=== PATIENT | female | born 1990 | race Caucasian/White ===

== ENCOUNTER 2023-06-13 16:16 | Emergency (ER) | payer MEDICARE ==
[2023-06-13 16:33] VITALS: TEMP 98.4
[2023-06-13] MEDS: SODIUM CHLORIDE 0.9% 1,000 ML IV STA (16:53)
[2023-06-13] MEDS: KETOROLAC 15 MG/ML 1 ML VIAL IVP STA (16:53)
[2023-06-13] MEDS: PANTOPRAZOLE 40 MG/10 ML VIAL IVP STA (16:54)
[2023-06-13] MEDS: ONDANSETRON 4 MG/2 ML VIAL IVP STA (16:58)
[2023-06-13] MEDS: MAG HYDROX/AL HYDROX/SIMETH 30 ML, HYOSCYAMINE ELIXIR 10 ML, LIDOCAINE VISCOUS 2% 10 ML PO STA (17:12)
[2023-06-13 17:15] LABS: Basophils # (A) 0.1 k/uL (0-0.2); Basophils % (A) 1 %; Eosinophils # (A) 0.1 k/uL (0-0.7); Eosinophils % (A) 1 %; HCT 41.3 % (34.0-46.0); HGB 13.6 gm/dL (11.4-16.0); Lymphocytes # (A) 1.8 k/uL (1.0-4.8); Lymphocytes % (A) 17 %; MCV 81.8 fL (80.0-100.0); Monocytes # (A) 0.4 k/uL (0-1.0); Monocytes % (A) 4 %; Neutrophils # (A) 8.2 k/uL (1.3-7.7); Neutrophils % (A) 77 %; Platelet Count 295 k/uL (150-450); RBC 5.05 m/uL (3.80-5.40); RDW 13.7 % (11.5-15.5); WBC 10.7 k/uL (3.8-10.6)
[2023-06-13 17:21] LABS: ALT 11 U/L (4-34); AST 19 U/L (14-36); African American GFR (CKD) >90 (>60 ml/min/1.73 sqM); Albumin 4.8 g/dL (3.5-5.0); Alkaline Phosphatase 79 U/L (38-126); Amylase 62 U/L (30-110); Anion Gap 7 mmol/L; Blood Urea Nitrogen 7 mg/dL (7-17); Calcium 10.2 mg/dL (8.4-10.2); Carbon Dioxide 25 mmol/L (22-30); Chloride 107 mmol/L (98-107); Glucose 101 mg/dL (74-99); Lipase 82 U/L (23-300); Non-African American GFR(CKD) >90 (>60 ml/min/1.73 sqM); Potassium 4.4 mmol/L (3.5-5.1); Sodium 139 mmol/L (137-145); Total Bilirubin 1.1 mg/dL (0.2-1.3); Total Protein 8.1 g/dL (6.3-8.2)
[2023-06-13 17:23] LABS: INR 0.9 (<1.2); Partial Thromboplastin Time 25.8 sec (22.0-30.0); Prothrombin Time 10.3 sec (10.0-12.5)
[2023-06-13 17:28] LABS: Appearance,Urine Cloudy (Clear); Bilirubin,Urine Negative (Negative); Blood,Urine Negative (Negative); Color,Urine Yellow; Glucose,Urine (UA) Negative (Negative); Ketones,Urine 1+ (Negative); Leukocyte Esterase,Urine Negative (Negative); Mucus,Urine Many /hpf; Nitrite,Urine Negative (Negative); Protein,Urine Trace (Negative); Specific Gravity,Urine 1.031 (1.001-1.035); Squamous Epithelial Cell,Urine 9 /hpf (0-4); Urobilinogen,Urine <2.0 mg/dL (<2.0); WBC,Urine 3 /hpf (0-5)
--- NOTE | 2023-06-13 17:53 | US ---
EXAMINATION TYPE: US gallbladder DATE OF EXAM: 06/13/2023 COMPARISON: NONE CLINICAL INDICATION: Female, 33 years old with history of abd pain, ruq; Generalized abdominal pain x 1 day. TECHNIQUE: Multiple sonographic images of the right upper quadrant are obtained. FINDINGS: EXAM MEASUREMENTS: Liver Length: 16.5 cm Gallbladder Wall: 0.13 cm CBD: 0.33 cm Right Kidney: 10.8 x 5.4 x 3.9 cm Pancreas: wnl Liver: wnl Gallbladder: wnl Evidence for sonographic Solomon's sign: No CBD: wnl Right Kidney: wnl IMPRESSION: 1. No significant abnormality seen. Sonographic Solomon sign is negative and there is no gallbladder o r biliary tree abnormality. 2. Normal liver, pancreas and right kidney. 3. No free fluid in the upper abdomen.
[2023-06-13] MEDS: ACETAMINOPHEN TAB 500 MG TAB PO STA (18:20)
--- NOTE | 2023-06-13 18:34 | CT ---
EXAMINATION TYPE: CT abdomen pelvis w con DATE OF EXAM: 06/13/2023 COMPARISON: None HISTORY: abdominal pain that radiates to the back with nausea CT DLP: 1411.2 mGycm Automated exposure control for dose reduction was used. TECHNIQUE: Helical acquisition of images was performed from the lung bases through the pelvis. CONTRAST: Performed without Oral Contrast and with IV Contrast, patient injected with 100ml mL of Isovue 300. FINDINGS: The lung bases are clear. The gallbladder is normal and there are no distention, gallstones, wall thickening or pericholecystic fluid. There is no biliary ductal dilatation. There is no focal mass or organomegaly involving the liver, pancreas, spleen and adrenal glands. There is no solid renal mass or hydronephrosis. The caliber of the abdominal aorta is normal and ther e is no retroperitoneal adenopathy. The bowel loops are normal in caliber and there is no dilatation or obstruction. No inflammatory rasmussen ges are identified in the bowel wall or mesentery and there is no free intraperitoneal air or fluid. There is a 7.2 cm cystic mass of the left adnexa. The osseous structures are intact. IMPRESSION: 7.2 cm cystic mass of left adnexa. Pelvic ultrasound would be useful for further characterization. No other significant amount is seen.
[2023-06-13 18:48] VITALS: RESP 18
--- NOTE | 2023-06-13 19:13 | US ---
EXAMINATION TYPE: US pelvic complete DATE OF EXAM: 06/13/2023 COMPARISON: CT: Today CLINICAL INDICATION: Female, 33 years old with history of eval for torsion/cyst of ovaries; pelvic pa in x 1 day. . Hx of ectopic in 2021. TECHNIQUE: Transabdominal sonographic images of the pelvis were acquired. Pt refused transvaginal exa m Date of LMP: 05/20/23 EXAM MEASUREMENTS: Uterus: 8.1 x 5.4 x 4.4 cm Endometrial Stripe: 0.7 cm Right Ovary: 4.1 x 2.7 x 2.7 cm Left Ovary: 6.2 x 3.7 x 4.2 cm 1. Uterus: Anteverted wnl 2. Endometrium: wnl 3. Right Ovary: cyst seen measuring 2.3 x 1.9 x 2.2cm 4. Left Ovary: cyst with septations seen measuring 5.2 x 4.2 x 3.8cm. Spectral, color and waveform doppler imaging shows good arterial and venous flow within the ovaries ; there is no evidence for ovarian torsion. 5. Bilateral Adnexa: wnl 6. Posterior cul-de-sac: wnl IMPRESSION: 1. 5.2 x 4.2 x 3.8 cm adnexal cystic mass which appears somewhat tubular. Findings raise the question of pyosalpinx and clinical correlation is recommended regarding the possibility of acute pelvic infl ammatory disease. 2. Normal uterus and endometrium. 3. Normal right ovary. 4. No free fluid in the cul-de-sac and limited transabdominal technique. Patient refused transvaginal ultrasound.
--- NOTE | 2023-06-13 20:05 | ED ---
General Adult HPI - General Chief complaint: Nausea/Vomiting/Diarrhea Stated complaint: abd pain,back pain Time Seen by Provider: 06/13/23 16:30 Source: patient, RN notes reviewed, old records reviewed Mode of arrival: ambulatory Limitations: no limitations - History of Present Illness Initial comments: Patient is a 33-year-old female presents emergency department complaining of generalized abdominal pain. States it is all over. Some nonspecific radiation. No urinary complaints. Denies any vaginal discharge, bleeding, concern for STDs. States she is not . Does have a history of prior ectopic . Denies any chest pain or shortness of breath. Denies obstipation. Endorses nausea and one episode of emesis. Home test negative. Presents for further evaluation at this time. - Related Data Previous Rx's Medication Instructions Recorded Doxycycline Hyclate 100 mg PO BID 7 Days #14 capsule 06/13/23 Allergies Allergy/AdvReac Type Severity Reaction Status Date / Time No Known Allergies Allergy Verified 06/13/23 16:28 Review of Systems ROS Statement: Those systems with pertinent positive or pertinent negative responses have been documented in the HPI. Review of Systems: CONST: Denies fever EYES: Denies blurry vision ENT: Denies nasal congestion C/V: Denies Chest pain RESP: Denies shortness of breath GI: Endorses abdominal pain : Denies dysuria SKIN: Denies rash. MSK: Denies joint pain. NEURO: Denies headache ROS Other: All systems not noted in ROS Statement are negative. Past Medical History Past Medical History: Asthma History of Any Multi-Drug Resistant Organisms: None Reported Additional Past Surgical History / Comment(s): D&C Past Psychological History: No Psychological Hx Reported Smoking Status: Never smoker Past Alcohol Use History: None Reported Past Drug Use History: None Reported General Exam - General Exam Comments Initial Comments: General: Appears anxious in mild distress secondary to abdominal pain. HEAD: Normal with no signs of head trauma. EYES: PERRLA, EOMI, conjunctiva normal, no discharge. ENT: Hearing grossly intact, normal oropharynx. RESPIRATORY: Clear breath sounds bilaterally. No wheezes, rales, or rhonchi. C/V: Regular rate and rhythm. S1 and S2 auscultated, no edema, peripheral pulses 2+ and intact throughout ABD: Abdomen is soft, nondistended. Mild tenderness to palpation primarily in the right upper quadrant and right mid quadrant. No guarding. No peritoneal signs. No rebound tenderness. EXT: Normal range of motion, no obvious deformity SKIN: No rashes or lesions observed on exposed skin. NEURO: Alert and oriented x 4. Limitations: no limitations Course Vital Signs 06/13/23 06/13/23 06/13/23 16:25 18:22 20:25 Temperature 98.4 F Pulse Rate 75 77 68 Respiratory 16 18 18 Rate Blood Pressure 115/78 117/74 114/73 O2 Sat by Pulse 100 98 97 Oximetry Medical Decision Making - Medical Decision Making Was pt. sent in by a medical professional or institution (, PA, PRECISION MECHANICAL INSTRUMENT MAKER, urgent care, hospital, or alf...) When possible be specific @ -No Did you speak to anyone other than the patient for history (EMS, parent, family, police, friend...)? What history was obtained from this source @ -No Did you review nursing and triage notes (agree or disagree)? Why? @ -I reviewed and agree with nursing and triage notes Were old charts reviewed (outside hosp., previous admission, EMS record, old EKG, old radiological studies, urgent care reports/EKG's, alf records)? Report findings @ -No old charts were reviewed Differential Diagnosis (chest pain, altered mental status, abdominal pain women, abdominal pain men, vaginal bleeding, weakness, fever, dyspnea, syncope, headach e, dizziness, GI bleed, back pain, seizure, CVA, palpatations, mental health, musculoskeletal)? @ -Differential Abdominal Pain Women: Appendicitis, Cholecystitis, diverticulosis, ischemic bowel, pancreatitis, hepatitis, UTI, gastroenteritis, AAA, incarcerated hernia, bowel obstruction, constipation, inflammatory bowel, hepatitis, peptic ulcer disease, splenic infarction, perforated viscus, vulvitis, ovarian torsion, PID, kidney stone, placenta abruption, this is not meant to be an all-inclusive list EKG interpreted by me (3pts min.). @ -As above X-rays interpreted by me (1pt min.). @ -None done CT interpreted by me (1pt min.). @ -CT abdomen pelvis reveals bilateral ovarian cysts. U/S interpreted by me (1pt. min.). @ -Ultrasound of the gallbladder reveals no obvious acute process. Pelvic ultrasound reveals bilateral ovarian cyst. Patient refused transvaginal ultrasound so exam was overall limited. No evidence of ovarian torsion. Radiology was concerned for possible ovarian cyst versus pyosalpinx on the left. Recommended clinical correlation. What testing was considered but not performed or refused? (CT, X-rays, U/S, labs)? Why? @ -None What meds were considered but not given or refused? Why? @ -None Did you discuss the management of the patient with other professionals (professionals i.e. , PA, PRECISION MECHANICAL INSTRUMENT MAKER, lab, RT, psych nurse, clinical social work therapist, cabinet installer, teacher, parachute officer, correctional case manager)? Give summary @ -No Was smoking cessation discussed for >3mins.? @ -No Was critical care preformed (if so, how long)? @ -No Were there social determinants of health that impacted care today? How? (Homelessness, low income, unemployed, alcoholism, drug addiction, transportation, low edu. Level, literacy, decrease access to med. care, [facility], rehab)? @ -No Was there de-escalation of care discussed even if they declined (Discuss DNR or withdrawal of care, Hospice)? DNR status @ -No What co-morbidities impacted this encounter? (DM, HTN, Smoking, COPD, CAD, Cancer, CVA, ARF, Chemo, Hep., AIDS, mental health diagnosis, sleep apnea, morbid obesity)? @ -None Was patient admitted / discharged? Hospital course, mention meds given and route, prescriptions, significant lab abnormalities, going to OR and other pertinent info. @ -Based on the patient's presentation and physical exam, presents with abdominal pain. Started today. Is nonfocal. We will obtain abdominal labs as well as gallbladder ultrasound and CT imaging to start. Patient in agreement this plan. Vital signs are within acceptable limits. She will be given IV analgesia medications, fluids, antiemetics. CT imaging shows no signs of acute process other than ovarian cyst. Gallbladder ultrasound unremarkable. Patient's laboratory studies are also unremarkable. She is not . Urine clean. I updated the patient at this time. At this time she did inform me that she does have a history of ovarian cysts and was wondering if that might be causing the pain. States now the pain seems to be more localized to the bilateral adnexa. I did recommend pelvic ultrasound as well as pelvic exam. She has no vaginal bleeding or discharge. No history of STDs. No concern for STDs. She was in agreement this plan. Pelvic ultrasound reveals bilateral ovarian cyst. Radiology concerned at possible pyosalpinx in the correct clinical setting on the left. I did discuss this with the patient. Patient has no clinical evidence of acute infection at this time. She has no vaginal discharge. No vaginal bleeding. No significant white blood cell count elevation. No other signs of infection. I did recommend pelvic exam for further evaluation and she was in agreement the plan. Pelvic: Pelvic exam was performed in the presence of a female staff member. External genitalia and vaginal mucosa was without lesion or erythema. Cervix without erythema or ulceration. External cervical os was closed and without discharge. Bimanual exam revealed no tenderness to the adnexa bilaterally and no cervical motion tenderness. Cervical swab was sent for GC, chlamydia, and trichomonas. With the patient's normal pelvic exam with no concern for pelvic inflammatory disease at this time, I do not believe the patient has a pyosalpinx. Patient has no clinical evidence of pelvic inflammatory disease. No objective evidence of acute infection at this time on labs or workup. I believe this is likely jus t an ovarian cyst. I did discuss with her and after discussion she will be empirically treated with outpatient PID antibiotics despite no concern for active PID infection at this time. She will be given Rocephin as well as doxycycline. Recommended strict follow-up with FUNERAL DIRECTOR/EMBALMER/OWNER. Patient was in agr eement this plan. I will provide the patient with a prescription for doxycycline, Tylenol starter pack, Zofran starter pack. I instructed the patient to follow up with their PCP in the next 1-3 days. I provided contact information for follow up with FUNERAL DIRECTOR/EMBALMER/OWNER. I explained that the patient should return to the emergency department if they experience any worsening symptoms. Strict return precautions were discussed with the patient. The patient expressed understanding of these instructions. I answe red all questions that the patient had. The patient was discharged home in good condition with their prescriptions and follow up information. Undiagnosed new problem with uncertain prognosis? @ -No Drug Therapy requiring intensive monitoring for toxicity (Heparin, Nitro, Insulin, Cardizem)? @ -No Were any procedures done? @ -No Diagnosis/symptom? @ -Ovarian cyst Acute, or Chronic, or Acute on Chronic? @ -Acute Uncomplicated (without systemic symptoms) or Complicated (systemic symptoms)? @ -Uncomplicated Side effects of treatment? @ -No Exacerbation, Progression, or Severe Exacerbation? @ -No Poses a threat to life or bodily function? How? (Chest pain, [place], [place], pneumonia, PE, COPD, DKA, ARF, appy, cholecystitis, CVA, Diverticulitis, Homicidal, Suicidal, threat to staff... and all critical care pts) @ -Unlikely - Lab Data Result diagrams: 06/13/23 16:51 06/13/23 16:51 Lab Results 06/13/23 06/13/23 06/13/23 Range/Units 16:51 16:51 16:51 WBC 10.7 H (3.8-10.6) k/uL RBC 5.05 (3.80-5.40) m/uL Hgb 13.6 (11.4-16.0) gm/dL Hct 41.3 (34.0-46.0) % MCV 81.8 (80.0-100.0) fL MCH 27.0 (25.0-35.0) pg MCHC 33.0 (31.0-37.0) g/dL RDW 13.7 (11.5-15.5) % Plt Count 295 (150-450) k/uL MPV 8.0 Neutrophils % 77 % Lymphocytes % 17 % Monocytes % 4 % Eosinophils % 1 % Basophils % 1 % Neutrophils # 8.2 H (1.3-7.7) k/uL Lymphocytes # 1.8 (1.0-4.8) k/uL Monocytes # 0.4 (0-1.0) k/uL Eosinophils # 0.1 (0-0.7) k/uL Basophils # 0.1 (0-0.2) k/uL PT 10.3 (10.0-12.5) sec INR 0.9 (<1.2) APTT 25.8 (22.0-30.0) sec Sodium (137-145) mmol/L Potassium (3.5-5.1) mmol/L Chloride (98-107) mmol/L Carbon Dioxide (22-30) mmol/L Anion Gap mmol/L BUN (7-17) mg/dL Creatinine (0.52-1.04) mg/dL Est GFR (CKD-EPI)AfAm (>60 ml/min/1.73 sqM) Est GFR (CKD-EPI)NonAf (>60 ml/min/1.73 sqM) Glucose (74-99) mg/dL Plasma Lactic Acid Nishant (0.7-2.0) mmol/L Calcium (8.4-10.2) mg/dL Total Bilirubin (0.2-1.3) mg/dL AST (14-36) U/L ALT (4-34) U/L Alkaline Phosphatase (38-126) U/L Total Protein (6.3-8.2) g/dL Albumin (3.5-5.0) g/dL Amylase (30-110) U/L Lipase (23-300) U/L Urine Color Yellow Urine Appearance Cloudy H (Clear) Urine pH 6.0 (5.0-8.0) Ur Specific [place] 1.031 (1.001-1.035) Urine Protein Trace H (Negative) Urine Glucose (UA) Negative (Negative) Urine Ketones 1+ H (Negative) Urine Blood Negative (Negative) Urine Nitrite Negative (Negative) Urine Bilirubin Negative (Negative) Urine Urobilinogen <2.0 (<2.0) mg/dL Ur Leukocyte Esterase Negative (Negative) Urine WBC 3 (0-5) /hpf Ur Squamous Epith Cells 9 H (0-4) /hpf Urine Mucus Many H (None) /hpf Urine HCG, Qual (Not Detectd) 06/13/23 06/13/23 06/13/23 Range/Units 16:51 16:51 16:51 WBC (3.8-10.6) k/uL RBC (3.80-5.40) m/uL Hgb (11.4-16.0) gm/dL Hct (34.0-46.0) % MCV (80.0-100.0) fL MCH (25.0-35.0) pg MCHC (31.0-37.0) g/dL RDW (11.5-15.5) % Plt Count (150-450) k/uL MPV Neutrophils % % Lymphocytes % % Monocytes % % Eosinophils % % Basophils % % Neutrophils # (1.3-7.7) k/uL Lymphocytes # (1.0-4.8) k/uL Monocytes # (0-1.0) k/uL Eosinophils # (0-0.7) k/uL Basophils # (0-0.2) k/uL PT (10.0-12.5) sec INR (<1.2) APTT (22.0-30.0) sec Sodium 139 (137-145) mmol/L Potassium 4.4 (3.5-5.1) mmol/L Chloride 107 (98-107) mmol/L Carbon Dioxide 25 (22-30) mmol/L Anion Gap 7 mmol/L BUN 7 (7-17) mg/dL Creatinine 0.77 (0.52-1.04) mg/dL Est GFR (CKD-EPI)AfAm >90 (>60 ml/min/1.73 sqM) Est GFR (CKD-EPI)NonAf >90 (>60 ml/min/1.73 sqM) Glucose 101 H (74-99) mg/dL Plasma Lactic Acid Nishant 1.0 (0.7-2.0) mmol/L Calcium 10.2 (8.4-10.2) mg/dL Total Bilirubin 1.1 (0.2-1.3) mg/dL AST 19 (14-36) U/L ALT 11 (4-34) U/L Alkaline Phosphatase 79 (38-126) U/L Total Protein 8.1 (6.3-8.2) g/dL Albumin 4.8 (3.5-5.0) g/dL Amylase 62 (30-110) U/L Lipase 82 (23-300) U/L Urine Color Urine Appearance (Clear) Urine pH (5.0-8.0) Ur Specific [place] (1.001-1.035) Urine Protein (Negative) Urine Glucose (UA) (Negative) Urine Ketones (Negative) Urine Blood (Negative) Urine Nitrite (Negative) Urine Bilirubin (Negative) Urine Urobilinogen (<2.0) mg/dL Ur Leukocyte Esterase (Negative) Urine WBC (0-5) /hpf Ur Squamous Epith Cells (0-4) /hpf Urine Mucus (None) /hpf Urine HCG, Qual Not Detected (Not Detectd) - EKG Data -: EKG Interpreted by Me EKG Comments: 12-lead Electrocardiogram Interpretation Note EKG was reviewed and interpreted by myself. 12-lead ECG performed at 1709 is interpreted by me as revealing normal sinus rhythm at a rate of 61 beats per minute. [place] is normal. CA interval is 137 ms, QRS duration is 102 ms, QTc is 425 ms.. There were no ST or T wave abnormalities to suggest myocardial ischemia or injury. R wave progression across the precordium was satisfactory. By my interpretation this EKG is non-diagnostic for acute ischemia. Disposition Clinical Impression: Ovarian cyst Disposition: ADMITTED IP TO THIS HOSP Condition: Stable Additional Instructions: please return if worsening symptoms. Prescriptions: Doxycycline Hyclate 100 mg PO BID 7 Days #14 capsule Is patient prescribed a controlled substance at d/c from ED?: No Referrals: Debbie Torres DO [Primary Care Provider] - 1-2 days Yani Kim DO [Doctor of Osteopathic Medicine] - 1-2 days Time of Disposition: 20:04
[2023-06-13] MEDS: ONDANSETRON 4 MG ODT STARTER PACK 2 TAB BTL PO STA (20:18)
[2023-06-13] MEDS: cefTRIAXone IN SWFI 1,000 MG/10 ML SYRINGE IVP STA (20:18)
[2023-06-13] MEDS: ACET/COD 300 MG/30 MG STARTER PACK 6 TAB BTL PO STA (20:19)
[2023-06-13] MEDS: DOXYCYCLINE 100 MG CAP PO STA (20:19)
[2023-06-13 20:34] VITALS: BP 114/73; PULSE 68
[2023-06-14 15:51] LABS: N. gonorrhoeae,PCR Negative (Negative)
[2023-06-14 15:52] LABS: C. trachomatis,PCR Negative (Negative)
== END 2023-06-13 20:26 | disposition other institution (70) ==
LOC: EC 16:16
DX: N83.202 Unspecified ovarian cyst, left side (principal); J45.909 Unspecified asthma, uncomplicated
CPT/HCPCS: 99285; 96374; 96375 ×3; 96361; 36415; 93005; 80053; 82150; 83605; 83690; 85025; 85610; 85730; 81001; 81025; 87491; 87591; 93975; 76856; 76705; 74177; J2405; J0696; J1885; S0119; C9113; Q9967